=== PATIENT | female | born 1945 | race American Indian/Alaskan Native ===

== ENCOUNTER 2021-06-16 06:00 | Day surgery (SDC) | payer MEDICARE ==
[~2021-06-16 06:00] MED LIST: HEPARIN 10,000 UNITS/10 ML VIAL IV ONE; MIDAZOLAM 2 MG/2 ML INJ IV NR; SODIUM CHLORIDE 0.9% 1000 ML 1,000 ML IV SCH; SODIUM CHLORIDE 0.9% 250 ML IVPB IV ONE; SODIUM CHLORIDE 0.9% IRR 500 ML BOTTLE IR ONE; SODIUM CHLORIDE 0.9% P/F 10 ML VIAL IV ONE; ceFAZolin/STERILE WATER 2 GM/20 ML SYRINGE IV NR; fentaNYL 100 MCG/2 ML INJ IV PRN; rifAMPin 600 MG VIAL IV ONE
[2021-06-16 07:05] LABS: Hematocrit 26.7 % (30.3-42.9); Hemoglobin 8.9 gm/dl (10.1-14.3); Mean Corpuscular HGB Conc 33 % (30-34); Mean Corpuscular Volume 82 fl (79-97); Platelet Count 236 K/mm3 (140-440); Red Blood Count 3.26 M/mm3 (3.65-5.03); Red Cell Distribution Width 14.1 % (13.2-15.2)
[2021-06-16] MEDS ORDERED: BUPIVACAINE/PF (0.5%) 5 MG/1 ML 30 ML VIAL INFILTRATI ONE ×5 (07:09→09:34)
[2021-06-16] MEDS ORDERED: SODIUM CHLORIDE P/F VIAL 10 ML 10 ML ONE (07:09)
[2021-06-16] MEDS ORDERED: rifAMPin 600 MG VIAL ONE (07:09)
[2021-06-16] MEDS ORDERED: HEPARIN 10,000 UNITS/10 ML VIAL ONE (07:09)
[2021-06-16] MEDS ORDERED: SODIUM CHLORIDE 0.9% 250ML 250 ML ONE ×2 (07:09→07:58)
[2021-06-16] MEDS ORDERED: SODIUM CHLORIDE 0.9% 500 ML 500 ML ONE (07:09)
[2021-06-16 07:17] LABS: Calcium 11.1 mg/dL (8.4-10.2)
[2021-06-16] MEDS ORDERED: propofoL 200 MG/20 ML VIAL IV ONE (07:41)
[2021-06-16] MEDS ORDERED: fentaNYL 100 MCG/2 ML INJ ONE (07:41)
[2021-06-16] MEDS ORDERED: BUPIVACAINE/PF (0.25%) 2.5 MG/ML 30 ML VIAL INFILTRATI ONE (07:46)
[2021-06-16] MEDS ORDERED: carvediloL 3.125 MG TAB PO SCH (07:52)
--- NOTE | 2021-06-16 07:54 | Anesthesia Consultation ---
Anesthesia Consult and Med Hx Date of service: 06/16/21 - Airway Anesthetic Teeth Evaluation: Dentures (upper), Partials (lower) ROM Head & Neck: Adequate Mental/Hyoid Distance: Adequate Mallampati Class: Class III Intubation Access Assessment: Possibly Difficult - Pre-Operative Health Status ASA Pre-Surgery Classification: ASA3 Proposed Anesthetic Plan: MAC Nerve Block: supraclavicular - Pulmonary Hx Smoking: No Hx Asthma: Yes (rare inhaler use) Hx Respiratory Symptoms: No - Cardiovascular System Hx Hypertension: Yes (will give home dose coreg in preop) Hx Heart Attack/AMI: No Hx Percutaneous Transluminal Coronary Angioplasty (PTCA): No Hx Cardia Arrhythmia: No - Central Nervous System CVA: No Hx Psychiatric Problems: Yes (depression) - Endocrine Hx Renal Disease: Yes (CKD V) Hx Liver Disease: No Hx Non-Insulin Dependent Diabetes: Yes Hx Thyroid Disease: No - Hematic Hx Anemia: Yes - Other Systems Hx Obesity: Yes (BMI 43) - Additional Comments Anesthesia Medical History Comments: No hx anesthetic complications.
--- NOTE | 2021-06-16 07:55 | Anesthesia Day of Surgery ---
Anesthesia Day of Surgery - Day of Surgery Patient Examined: Yes Patient H&P Reviewed: Yes Patient is NPO: Yes Beta Blockers: Yes
[2021-06-16] MEDS ORDERED: PHENYLEPHRINE 10 MG/1 ML INJ SDV ONE ×2 (08:00→10:13)
[2021-06-16] MEDS ORDERED: LIDOCAINE (1%) 10 MG/1 ML VIAL 20 ML MDV ONE (08:51)
[2021-06-16] MEDS ORDERED: rifAMPin 600 MG VIAL IV ONE (09:13)
[2021-06-16] MEDS ORDERED: HEPARIN 10,000 UNITS/10 ML VIAL IV ONE (09:13)
[2021-06-16] MEDS ORDERED: SODIUM CHLORIDE 0.9% IRR 500 ML BOTTLE IR ONE (09:13)
[2021-06-16] MEDS ORDERED: SODIUM CHLORIDE 0.9% 250 ML IVPB IV ONE (09:13)
[2021-06-16] MEDS ORDERED: PHENYLEPHRINE/NS 1,000 MCG/10 ML SYRINGE (OR USE) IV ONE (10:13)
[2021-06-16] MEDS ORDERED: LIDOCAINE (1%) 10 MG/1 ML VIAL 20 ML MDV INFILTRATI ONE (10:22)
--- NOTE | 2021-06-16 10:54 | Short Stay Summary ---
Short Stay Documentation Date of service: 06/16/21 Narrative H&P: See H&P - History H&P: obtained from office - Allergies and Medications Current Medications: Allergies No Known Allergies Allergy (Unverified 06/03/21 13:06) Home Medications Medication Instructions Recorded Confirmed Last Taken Type Cyanocobalamin (Vitamin B-12) 1,200 mcg PO DAILY 06/03/21 06/16/21 06/15/21 09:00 History [Vitamin B12] DULoxetine [Cymbalta] 30 mg PO DAILY 06/03/21 06/16/21 06/15/21 09:00 History Famotidine [Pepcid] 40 mg PO QHS 06/03/21 06/16/21 06/15/21 20:00 History Ferrous Sulfate [Iron 325 MG] 325 mg PO DAILY 06/03/21 06/16/21 06/15/21 09:00 History Gabapentin [Neurontin] 100 mg PO HS 06/03/21 06/16/21 06/15/21 20:00 History Magnesium Oxide [Magnesium] 800 mg PO 1XW 06/03/21 06/16/21 06/14/21 09:00 History [place]-3S/Dha/Epa/Fish Oil [Fish 1 each PO BID 06/03/21 06/16/21 06/15/21 17:00 History Oil 1,200 mg Softgel] Pravastatin [Pravachol] 40 mg PO QHS 06/03/21 06/16/21 06/15/21 20:00 History Sucralfate [Carafate] 1 gm PO ACHS 06/03/21 06/16/21 06/15/21 20:00 History Torsemide [Demadex] 10 mg PO QDAY 06/03/21 06/16/21 06/15/21 09:00 History amLODIPine 10 mg PO HS 06/03/21 06/16/21 06/15/21 20:00 History calcitrioL [Rocaltrol] 0.25 mcg PO DAILY 06/03/21 06/16/21 06/15/21 09:00 History carvediloL [Coreg] 3.125 mg PO BID 06/03/21 06/16/21 06/16/21 08:00 History donepeziL [Aricept] 10 mg PO HS 06/03/21 06/16/21 06/15/21 20:00 History traMADoL [Ultram] 100 mg PO BID PRN 06/03/21 06/03/21 Unknown History Active Medications Cefazolin Sodium (Cefazolin/Sterile Water 2 Gm/20 Ml Syringe) 2 gm IV PREOP NR Stop: 06/16/21 20:00 Fentanyl (Fentanyl 100 Mcg/2 Ml Inj) 100 mcg IV ONCE PRN PRN Reason: sedation for nerve block Stop: 06/16/21 20:00 Sodium Chloride (Nacl 0.9% 1000 Ml) 1,000 mls @ 42 mls/hr IV DIRECT ANTONIA Stop: 06/16/21 23:59 Midazolam HCl (Midazolam 2 Mg/2 Ml Inj) 2 mg IV PREOP NR Stop: 06/16/21 20:00 - Brief post op/procedure progress note Date of procedure: 06/16/21 Pre-op diagnosis: Chronic Renal Insufficiency Post-op diagnosis: same Procedure: Left Brachial Artery to Left Axillary Vein Arteriovenous Graft with 6 mm Bovine Artegraft Anesthesia: MAC, regional Surgeon: PENNY JUNG Estimated blood loss: minimal Pathology: none Condition: stable - Disposition Condition at discharge: Good Disposition: DC-01 TO HOME OR SELFCARE Short Stay Discharge Plan Activity: other (No heavy lifting with left arm for 2 weeks.) Wound: open to air, keep clean and dry, other (Okay to shower and wash the left arm wounds with soap and water but do not soak in water for 2 weeks.) Follow up with: PENNY JUNG MD [Staff Physician] - 14 Days Prescriptions: HYDROcodone/APAP 5-325 [[place] 5/325] 1 each PO Q4HR PRN #40 tablet PRN Reason: Pain
--- NOTE | 2021-06-16 10:58 | Operative Report ---
Operative Report Operative Report: Date of procedure: 06/16/2021 Pre-operative diagnosis: Chronic Renal Insufficiency Post-operative diagnosis: Same Procedure(s): 1. Creation of Left Brachial Artery to Axillary Vein AV Graft with 6 mm Bovine Graft Artergraft Surgeon: Angel Mathis MD Hydraulic Engineer: None Anesthesia: Regional/MAC EBL: Minimal Counts: Correct Complications: None Condition: Stable Findings: Successful Creation of Left Arm AV Graft with Palpable Thrill and Palpable Radial Pulse at the Completion of the Case. Specimen: None Indication: The patient is a 75-year-old female with a history of chronic renal insufficiency who is not yet on hemodialysis however it is anticipated that she will progress to requiring hemodialysis in the next several months. She is in need of long-term dialysis access to avoid placement of a permacath. She was evaluated and found not to have adequate vein for creation of an arteriovenous fistula so she requires creation of an arteriovenous graft. She was given the risk, benefits, and alternative procedures and consented to the procedure. Description of Procedure: Prior to being transported to the operating room the patient had a regional block of the left arm performed. After the block was performed the patient was transported to the operating room and adequately sedated. The patient's left arm was then prepped and draped in normal sterile fashion. A longitudinal incision was made on the medial aspect of the arm just proximal to the antecubital crease and carried down to the brachial artery using sharp dissection. The brachial artery was dissected out circumferentially both proximally and distally and controlled with vessel loops. A second incision was created in longitudinal fashion on the medial aspect of the arm just distal to the axillary crease and carried down to the axillary vein using sharp dissection. Axillary vein was dissected out circumferentially and controlled with a vessel loop. I then used a Mar-Wick tunneler to tunnel from the brachial artery incision to the axillary vein incision and then pulled an 6 mm bovine through the tunnel. I infused with heparinized saline to ensure that it was not twisted or kinked. I put the brachial artery vessel loops on tension controlling the flow and then created an arteriotomy using an 11 blade and Perkins scissors. I beveled the graft and created an end-to-side anastomosis using 6-0 Prolene running fashion. I clamped the graft just proximal to the anastomosis and then released the vessel loops restoring flow in the brachial artery. I placed quick clot in incision to achieve hemostasis. I cut the proximal end of the graft to the appropriate length and beveled the graft in preparation for a venous anastomosis. I controlled the axillary vein a Satinsky clamp and created a venotomy using an 11 blade and Perkins scissors. I created an end to side anastomosis using a 6-0 Prolene in running fashion. Prior to completing the anastomosis I flushed the graft to ensure there was no thrombus and then completed the anastamosis. I released all clamps allowing flow into the AV graft which had an excellent thrill. I packed the wound with quick clot to achieve hemostasis. I closed both wounds in 2 layers using 3-0 Vicryl in running fashion in the deep dermal layer and 4-0 Monocryl in running fashion the subcuticular layer. I dressed both wounds with Dermabond. The patient tolerated the procedure well all sponge, needle, and instrument counts were correct. The patient was taken to recovery in stable condition.
[2021-06-16 13:00] VITALS: BP 143/67
--- NOTE | 2021-06-16 14:23 | Post Anesthesia Evaluation ---
- Post Anesthesia Evaluation Patient Participated: Yes Airway Patent: Yes Stable Respiratory Function: Yes Nausea/Vomiting: No Temp > 96.8F: Yes Pain Manageable: Yes Adequeate Hydration: Yes Anesthesia Complications: No Block Receding Appropriately: Yes
== END 2021-06-16 06:01 | disposition home or self-care (01) ==
LOC: OR 06:00
PROVIDERS: ATTEND Surgery Vascular Surgery
DX: I12.0 Hypertensive chronic kidney disease with stage 5 chronic kidney disease or end stage renal disease (principal); E11.22 Type 2 diabetes mellitus with diabetic chronic kidney disease; N18.6 End stage renal disease; E78.00 Pure hypercholesterolemia, unspecified; J45.909 Unspecified asthma, uncomplicated; K21.9 Gastro-esophageal reflux disease without esophagitis; E66.9 Obesity, unspecified; M19.90 Unspecified osteoarthritis, unspecified site; F32.9 Major depressive disorder, single episode, unspecified; D64.9 Anemia, unspecified; Z79.899 Other long term (current) drug therapy; Z98.41 Cataract extraction status, right eye; Z90.49 Acquired absence of other specified parts of digestive tract; Z90.710 Acquired absence of both cervix and uterus; Z98.890 Other specified postprocedural states; Z96.611 Presence of right artificial shoulder joint
CPT/HCPCS: 36415; 36830; 64415; 80048; 82962; 85027; C1768; J0690; J1644; J2250; J2370; J2704; J3010; J3490; J7030; J7050; 64450; J7040

== ENCOUNTER 2021-12-09 08:33 | Day surgery (SDC) | payer MEDICARE ==
[~2021-12-09 08:33] MED LIST changes: -HEPARIN 10,000 UNITS/10 ML VIAL IV ONE; -MIDAZOLAM 2 MG/2 ML INJ IV NR; -SODIUM CHLORIDE 0.9% 1000 ML 1,000 ML IV SCH; -SODIUM CHLORIDE 0.9% 250 ML IVPB IV ONE; -SODIUM CHLORIDE 0.9% IRR 500 ML BOTTLE IR ONE; -SODIUM CHLORIDE 0.9% P/F 10 ML VIAL IV ONE; -ceFAZolin/STERILE WATER 2 GM/20 ML SYRINGE IV NR; +ceFAZolin/Water 2 GM/20 ML 2 GM/20 ML SYRINGE IV NR; -fentaNYL 100 MCG/2 ML INJ IV PRN; -rifAMPin 600 MG VIAL IV ONE
[2021-12-09] MEDS ORDERED: SODIUM CHLORIDE 0.9% 1000 ML 1,000 ML ONE (08:39)
[2021-12-09 09:18] LABS: Hematocrit 28.4 % (30.3-42.9); Hemoglobin 8.8 gm/dl (10.1-14.3); Mean Corpuscular HGB Conc 31 % (30-34); Mean Corpuscular Volume 81 fl (79-97); Platelet Count 237 K/mm3 (140-440); Red Cell Distribution Width 15.6 % (13.2-15.2)
[2021-12-09 09:32] LABS: Calcium 9.5 mg/dL (8.4-10.2)
--- NOTE | 2021-12-09 09:57 | Anesthesia Consultation ---
Anesthesia Consult and Med Hx Date of service: 12/09/21 - Airway Anesthetic Teeth Evaluation: Dentures ROM Head & Neck: Adequate Mental/Hyoid Distance: Adequate Mallampati Class: Class II Intubation Access Assessment: Probably Good - Pulmonary Exam CTA: Yes - Cardiac Exam Cardiac Exam: RRR - Pre-Operative Health Status ASA Pre-Surgery Classification: ASA4 Proposed Anesthetic Plan: General - Pulmonary Hx Smoking: No Hx Asthma: Yes (rare inhaler use) Hx Respiratory Symptoms: No Hx Sleep Apnea: Yes - Cardiovascular System Hx Hypertension: Yes (will give home dose coreg in preop) Hx Heart Attack/AMI: No Hx Angina: No Hx Percutaneous Transluminal Coronary Angioplasty (PTCA): No Hx Cardia Arrhythmia: No - Central Nervous System CVA: No Hx Psychiatric Problems: Yes (depression) - Gastrointestinal Hx Gastroesophageal Reflux Disease: No - Endocrine Hx Renal Disease: Yes (CKD V) Hx Liver Disease: No Hx Non-Insulin Dependent Diabetes: Yes Hx Thyroid Disease: No Hx Hyperthyroidism: Yes - Hematic Hx Anemia: Yes Hx Sickle Cell Disease: Yes (SICKLE CELL TRAIT) - Other Systems Hx Alcohol Use: No Hx Substance Use: No Hx Cancer: No Hx Obesity: Yes (BMI 43) - Additional Comments Anesthesia Medical History Comments: surgical hx: Breast sx, hysterectomy, R shoulder sx, lap francheska
--- NOTE | 2021-12-09 09:58 | Anesthesia Day of Surgery ---
Anesthesia Day of Surgery - Day of Surgery Patient Examined: Yes Patient H&P Reviewed: Yes Patient is NPO: Yes Beta Blockers: Yes Cardiac Clearance: No Pulmonary Clearance: No Yassine's Test: N/A
[2021-12-09] MEDS ORDERED: SODIUM CHLORIDE 0.9% 1000 ML 1,000 ML IV SCH (10:15)
--- NOTE | 2021-12-09 10:54 | Short Stay Summary ---
Short Stay Documentation Date of service: 12/09/21 Narrative H&P: The patient is a 76-year-old female with a history of chronic renal insufficiency who is not yet on hemodialysis however she underwent creation of a left brachial artery to left axillary vein arteriovenous graft. Since the creation the graft has thrombosed requiring a percutaneous mechanical thrombectomy. There was some residual thrombus after the case so she was started on Eliquis however the graft thrombosed despite the procedure. Given the rethrombosis it was felt that she would benefit from an open thrombectomy with possible revision of the arterial anastomosis as there was evidence of chronic thrombus at the arterial anastomosis that would be best managed with an open thrombectomy. The patient was given the risk, benefits, and alternative procedures and consented to the procedure. - History Past Medical History: arthritis, GERD, hypertension, hyperlipidemia, renal failure, other (Hyperparathyroidism, depression, hypomagnesemia) Past Surgical History: cholecystectomy, hysterectomy, Other (Creation of left arm arteriovenous graft, lumpectomy, right shoulder repair) Social history: no significant social history - Allergies and Medications Current Medications: Allergies No Known Allergies Allergy (Unverified 06/03/21 13:06) Home Medications Medication Instructions Recorded Confirmed Last Taken Type Cyanocobalamin (Vitamin B-12) 1,200 mcg PO DAILY 06/03/21 12/03/21 06/15/21 09:00 History [Vitamin B12] DULoxetine [Cymbalta] 30 mg PO DAILY 06/03/21 12/09/21 12/08/21 08:00 History Famotidine [Pepcid] 40 mg PO QHS PRN 06/03/21 12/03/21 06/15/21 20:00 History Ferrous Sulfate [Iron 325 MG] 325 mg PO DAILY 06/03/21 12/09/21 12/08/21 08:00 History Gabapentin 100 mg PO HS 06/03/21 12/03/21 06/15/21 20:00 History Magnesium Oxide [Magnesium] 800 mg PO 1XW 06/03/21 12/09/21 12/08/21 08:00 History [place]-3S/Dha/Epa/Fish Oil [Fish 1 each PO BID 06/03/21 12/03/21 06/15/21 17:00 History Oil 1,200 mg Softgel] Pravastatin [Pravachol] 40 mg PO QHS 06/03/21 12/09/21 12/08/21 19:00 History Torsemide [Demadex] 10 mg PO QDAY 06/03/21 12/09/21 12/08/21 19:00 History amLODIPine 10 mg PO HS 06/03/21 12/03/21 06/15/21 20:00 History calcitrioL [Rocaltrol] 0.25 mcg PO DAILY 06/03/21 12/03/21 06/15/21 09:00 History carvediloL [Coreg] 3.125 mg PO BID 06/03/21 12/03/21 06/16/21 08:00 History donepeziL [Aricept] 10 mg PO HS 06/03/21 12/09/21 12/08/21 12:00 History traMADoL [Ultram 50 MG tab] 100 mg PO BID PRN 06/03/21 12/03/21 Unknown History HYDROcodone/APAP 5-325 [[place] 1 each PO Q4HR PRN #40 tablet 06/16/21 12/03/21 Unknown Rx 5/325] Sodium Bicarbonate 650 mg PO TID 12/03/21 12/09/21 12/08/21 19:00 History Active Medications Cefazolin Sodium (Ancef/Sterile Water 2 Gm/20 Ml) 2 gm in 20 mls @ 80 mls/hr IV PREOP NR; Protocol Stop: 12/09/21 20:00 Sodium Chloride (Nacl 0.9% 1000 Ml) 1,000 mls @ 42 mls/hr IV DIRECT ANTONIA - Physical exam General appearance: no acute distress Lungs: Normal air movement Breasts: deferred Heart: Regular rate Gastrointestinal: normal Female Genitourinary: deferred Rectal Exam: deferred Extremities: abnormal (Left arm AV graft without pulse or thrill, left arm incisions are well-healed without evidence of infection) - Brief post op/procedure progress note Date of procedure: 12/09/21 Pre-op diagnosis: Complications of Dialysis Access Post-op diagnosis: same Procedure: 1. Open Thrombectomy of Left Arm Arteriovenous Graft with 4 Enma and 5/8 Graft Adherent Thrombectomy Catheter 2. Revision of Arterial Anastomosis with Bovine Pericardial Patch Anesthesia: GETA Surgeon: PENNY JUNG Estimated blood loss: 50-100ml Pathology: list (Left arm arteriovenous graft thrombus) Specimen disposition: to lab Condition: stable - Disposition Condition at discharge: Good Disposition: 01 HOME / SELF CARE / HOMELESS Short Stay Discharge Plan Activity: other (No heavy lifting with left arm for 2 weeks.) Wound: open to air, keep clean and dry, other (Okay to wash the left arm wound with soap and water but do not soak in water for 2 weeks.) Special Instructions: other (Eliquis 5 mg By Mouth Twice per day for 2 weeks. 2 weeks of samples have been provided at discharge.) Follow up with: PENNY JUNG MD [Staff Physician] - 14 Days Forms: Outpatient Surgery DC Inst. Prescriptions: HYDROcodone/APAP 7.5-325 [[place] 7.5/325] 1 each PO Q6HR PRN #40 tablet PRN Reason: Pain
[2021-12-09] MEDS ORDERED: HEPARIN 10,000 UNITS/10 ML VIAL ONE (12:40)
[2021-12-09] MEDS ORDERED: SODIUM CHLORIDE 0.9% 500 ML 500 ML ONE (12:41)
[2021-12-09] MEDS ORDERED: SODIUM CHLORIDE 0.9% 100 ML ONE ×2 (12:41→13:44)
[2021-12-09] MEDS ORDERED: SODIUM CHLORIDE 0.9% 0 ML ONE (12:42)
[2021-12-09] MEDS ORDERED: BUPIVACAINE/PF (0.5%) 5 MG/1 ML 30 ML VIAL INFILTRATI ONE ×3 (12:42→14:19)
[2021-12-09] MEDS ORDERED: rifAMPin 600 MG VIAL ONE (12:43)
[2021-12-09] MEDS ORDERED: HYDROmorphone 1 MG/1 ML INJ ONE (12:57)
[2021-12-09] MEDS ORDERED: propofoL 200 MG/20 ML VIAL IV ONE (12:57)
[2021-12-09] MEDS ORDERED: LIDOCAINE MPF (2%) 20 MG/1 ML VIAL 5 ML ONE (12:57)
[2021-12-09] MEDS ORDERED: HEPARIN 10,000 UNITS/10 ML VIAL IR ONE (14:20)
[2021-12-09] MEDS ORDERED: SODIUM CHLORIDE 0.9% 500 ML IVPB IRRIGATION ONE (14:21)
[2021-12-09] MEDS ORDERED: SODIUM CHLORIDE 0.9% IRR 1,500 ML BOTTLE IR ONE (14:22)
[2021-12-09] MEDS ORDERED: rifAMPin 600 MG VIAL IV ONE (14:22)
[2021-12-09] MEDS ORDERED: ePHEDrine SULFATE 50 MG/1 ML INJ ONE (14:29)
[2021-12-09] MEDS ORDERED: ONDANSETRON 4 MG/2 ML INJ ONE (14:58)
--- NOTE | 2021-12-09 15:37 | Operative Report ---
Operative Report Operative Report: Date of Procedure: 12/09/2021 Pre-operative Diagnosis: Complications of Dialysis Access Post-operative Diagnosis: Same Procedure(s): 1. Open Thrombectomy of Left Arm Arteriovenous Graft with 4 Enma and 5/8 Graft Adherent Thrombectomy Catheter 2. Revision of Arterial Anastomosis with Bovine Pericardial Patch Surgeon: Angel Mathis M.D. Teletype Or Varitype Keyboard Operator: None Anesthesia: General Endotracheal Anesthesia EBL: 50 mL Counts: Correct Complications: None Condition: Stable Findings: There was a dissection flap in the lumen of the graft however this did not extend into the lumen of the artery. There was a large thrombus plug occluding the arterial anastomosis. There was a palpable thrill and palpable radial pulse at the completion of the case. Specimen: Left arm arteriovenous graft thrombus was sent to pathology. Indication: The patient is a 76-year-old female with a history of chronic renal sufficiency who had creation of a left brachial artery left axillary vein arteriovenous graft in anticipation of dialysis in the near future. The graft thrombosed shortly after creation and required endovascular intervention to restore flow. She was started on Eliquis 5 mg p.o. twice daily secondary to retained thrombus however the graft thrombosed despite the anticoagulation. Given this and the decision was made to set her up for an open thrombectomy with possible revision of the arterial anastomosis if required. She was given the risk, benefits, and alternative procedures and consented to the procedure. Description of Procedure: The patient was brought to the operating room and laid in supine position. After a timeout was performed General endotracheal anesthesia was achieved and her left arm was prepped and draped in normal sterile fashion. A longitudinal incision was created through her previous incision, just above the antecubital crease, and sharp dissection was used to carry the incision down to the arterial anastomosis of the arteriovenous graft. The brachial artery both proximal and distal to the anastomosis was dissected circumferentially and controlled with Vesseloops. The graft was dissected circumferentially just distal to the arterial anastomosis. The patient was systemically heparinized with 5000 units of heparin IV, and after that circulated for 3 minutes the brachial artery was clamped both proximal and distal to the anastomosis. An arteriotomy was created on the brachial artery, centered near the arterial anastomosis, using an 11 blade and Perikns scissors. Upon opening the artery it was obvious that there was an intimal band or dissection flap extending into the lumen of the graft. I passed a 4 Enma into the graft and made several passes, removing a significant amount of thrombus, however there was no venous backbleeding. I then used Pott scissors to partially open the graft, near the anastomosis, and removed a large thrombus plug. I then advanced the 5/8 Adherent Graft Thrombectomy Catheter and advanced this well past the venous anastomosis and made several passes, removing a significant amount of thrombus until there was brisk venous backbleeding. I flushed the graft with heparinized saline and then clamped the graft with an angled DeBakey clamp. I then used 5-0 Prolene, in running fashion, to close the graftotomy. I closed the arteriotomy, and the brachial artery using a bovine pericardial patch and two 6-0 Prolene's in running fashion. Prior to completing the closure I flashed the inflow and outflow of the brachial artery as well as the graft. I then completed closure and released all clamps allow flow to the graft which had a palpable thrill. There was also a palpable thrill within the radial artery. Hemostasis within the wound was achieved with a combination of cautery, manual pressure, and quick clot. Once hemostasis was achieved the wound was anesthetized with 0.5% Marcaine and closed in 2 layers using 3-0 Vicryl in running fashion in the deep dermal layer, 4-0 Monocryl in a running fashion the subcuticular layer, and Dermabond to dress the skin. The patient tolerated the procedure well. All sponge, needle, and instrument counts were correct. The patient was taken to the recovery area in stable condition.
[2021-12-09] MEDS ORDERED: APIXABAN 5 MG TAB PO ONE (16:00)
--- NOTE | 2021-12-09 16:52 | Post Anesthesia Evaluation ---
- Post Anesthesia Evaluation Patient Participated: Yes Airway Patent: Yes Stable Respiratory Function: Yes Nausea/Vomiting: No Temp > 96.8F: Yes Pain Manageable: Yes Adequeate Hydration: Yes Anesthesia Complications: No Block Receding Appropriately: Not Applicable Patient on Ventilator: No
[2021-12-09 19:01] VITALS: BP 137/55
== END 2021-12-09 17:15 | disposition home or self-care (01) ==
LOC: OR 08:33
PROVIDERS: ATTEND Surgery Vascular Surgery
DX: I12.0 Hypertensive chronic kidney disease with stage 5 chronic kidney disease or end stage renal disease (principal); N18.6 End stage renal disease; J45.909 Unspecified asthma, uncomplicated; G47.30 Sleep apnea, unspecified; E78.00 Pure hypercholesterolemia, unspecified; E11.22 Type 2 diabetes mellitus with diabetic chronic kidney disease; F32.9 Major depressive disorder, single episode, unspecified; E66.9 Obesity, unspecified; Z79.899 Other long term (current) drug therapy; Z98.890 Other specified postprocedural states; Z20.822 Contact with and (suspected) exposure to COVID-19
CPT/HCPCS: 36415; 36832; 80048; 82962; 85027; 88304; C1757; C1768; J0690; J1170; J1644; J2405; J2704; J3490; J7030; J7040; U0003; J7120; Q0162